=== PATIENT | male | born 2000 | race Caucasian/White ===

== ENCOUNTER 2020-01-19 22:41 | Emergency (ER) | payer OTHER ==
[~2020-01-19] VITALS: Ht 190.5 cm; Wt 83.9 kg
[2020-01-19 22:42] VITALS: BP 126/93
--- NOTE | 2020-01-19 22:42 | NUR ---
DR. ELDRIDGE AT BEDSIDE.
[2020-01-19] MEDS ORDERED: NEOMYCIN/POLYMYXIN/BACITRACIN 0.9 GM/1 PKT TP ONE (22:45)
--- NOTE | 2020-01-19 23:26 | NUR ---
TDAP VACCINE GIVEN IN R DELTOID IM.
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
[2020-01-19 23:40] VITALS: BP 126/93
--- NOTE | 2020-01-19 23:40 | NUR ---
Patient discharged with v/s stable. Written and verbal after care instructions given and explained. Patient verbalized understanding. Ambulatory with steady gait. All questions addressed prior to discharge. Advised to follow up with PMD.
== END 2020-01-19 23:40 | disposition home or self-care (01) ==
LOC: MED 22:41
DX: S50.811A Abrasion of right forearm, initial encounter (principal); F12.90 Cannabis use, unspecified, uncomplicated; Z02.89 Encounter for other administrative examinations; X58.XXXA Exposure to other specified factors, initial encounter; Y93.89 Activity, other specified; Y92.89 Other specified places as the place of occurrence of the external cause; Y99.8 Other external cause status
CPT/HCPCS: 90471; 90715; 99283